=== PATIENT | male | born 1995 | race Caucasian/White ===

== ENCOUNTER 2016-05-06 17:50 | Emergency (ER) | payer OTHER ==
[~2016-05-06] VITALS: Ht 172.7 cm; Wt 77.3 kg
[2016-05-06 17:55] VITALS: Ht 172.7 cm; Wt 77.3 kg
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
[2016-05-06 19:28] VITALS: BP 121/72; PULSE 73; RESP 18; TEMP 97.9
== END 2016-05-06 20:17 | disposition home or self-care (01) ==
LOC: E/R 17:50
DX: R41.82 Altered mental status, unspecified (principal); I10 Essential (primary) hypertension; F17.210 Nicotine dependence, cigarettes, uncomplicated
CPT/HCPCS: 82962; 93005